=== PATIENT | female | born 1945 | race Two or more races ===

== ENCOUNTER 2017-09-21 07:02 | Outpatient (CLI) | payer OTHER | END 2017-09-21 07:14 | disposition home or self-care (01) | LOC: LAB 07:02 | DX: I11.9 Hypertensive heart disease without heart failure (principal); E78.2 Mixed hyperlipidemia; E11.9 Type 2 diabetes mellitus without complications ==

== ENCOUNTER 2017-10-26 07:18 | Outpatient (CLI) | payer OTHER | END 2017-10-26 07:21 | disposition home or self-care (01) | LOC: NUCLEAR 07:18 | DX: I11.9 Hypertensive heart disease without heart failure (principal); I25.10 Atherosclerotic heart disease of native coronary artery without angina pectoris; E11.9 Type 2 diabetes mellitus without complications | CPT/HCPCS: 78452; 93017; A9500; J0153 ==

== ENCOUNTER 2018-06-15 06:44 | Outpatient (CLI) | payer OTHER | END 2018-06-15 06:56 | disposition home or self-care (01) | LOC: LAB 06:44 | DX: I11.0 Hypertensive heart disease with heart failure (principal); D53.8 Other specified nutritional anemias; E10.10 Type 1 diabetes mellitus with ketoacidosis without coma; E04.0 Nontoxic diffuse goiter; N39.0 Urinary tract infection, site not specified ==